=== PATIENT | male | born 1990 | race Two or more races ===

== ENCOUNTER 2019-03-15 04:39 | Emergency (ER) | payer OTHER ==
[~2019-03-15] VITALS: Ht 170.2 cm; Wt 79.4 kg
== END 2019-03-15 11:12 | disposition home or self-care (01) ==
LOC: ER 04:39
DX: K52.9 Noninfective gastroenteritis and colitis, unspecified (principal); D72.0 Genetic anomalies of leukocytes; R10.2 Pelvic and perineal pain